=== PATIENT | female | born 1985 | race Caucasian/White ===

== ENCOUNTER 2017-01-25 05:26 | Inpatient (IN) | payer BC ==
[2017-01-25] MEDS ORDERED: Sodium Chloride 0.9% 10 ML Syringe FLUSH PRN (05:30)
[2017-01-25] MEDS ORDERED: ceFAZolin 2 GM in Premix Bag 1 BAG IV ONE (06:00)
[2017-01-25] MEDS ORDERED: Citric Acid/Sodium Citrate Solution 30 ML Cup PO ONE (06:00)
[2017-01-25] MEDS ORDERED: Metoclopramide 10 MG/2 ML SDV IVPUSH ONE (06:00)
[2017-01-25] MEDS: Lactated Ringers 1,000 ML IV SCH ×2 (06:13→06:45)
[2017-01-25] MEDS ORDERED: ePHEDrine 50 MG/ML SDV ONE (06:53)
[2017-01-25] MEDS ORDERED: Lactated Ringers 2,000 ML ONE ×2 (06:53→08:38)
[2017-01-25] MEDS ORDERED: Ondansetron 4 MG/2 ML SDV ONE (06:53)
[2017-01-25] MEDS ORDERED: Oxytocin 10 Units/1 ML SDV ONE (06:53)
[2017-01-25] MEDS ORDERED: Phenylephrine 1% 10 MG/ML SDV ONE (06:53)
[2017-01-25] MEDS ORDERED: Ketorolac 30 MG/ML SDV ONE (06:54)
[2017-01-25] MEDS ORDERED: Morphine PF 10 MG/10 ML SDV ONE (06:54)
[2017-01-25] MEDS ORDERED: ceFAZolin 1 GM Vial ONE (06:54)
[2017-01-25] MEDS ORDERED: Bupivacaine 0.5% 30 ML SDV ONE (07:06)
--- NOTE | 2017-01-25 07:22 | PCM.PREANE ---
Preanesthetic Assessment - Anesthesia/Transfusion/Family Hx Anesthesia History: Prior Anesthesia Reaction Type of Anesthesia Reaction: Excessive Nausea/Vomiting (After general anesthetics) Family History of Anesthesia Reaction: No Transfusion History: No Prior Transfusion(s) Intubation History: Unknown - Review of Systems General: No Symptoms Pulmonary: No Symptoms Cardiovascular: Palpitations (Tachycardia with . Holter monitor was normal. ), Other Gastrointestinal: Other (Heart burn at night) Neurological: No Symptoms Other: Reports: None - Physical Assessment NPO Status Date: 01/24/17 NPO Status Time: 00:00 O2 Sat by Pulse Oximetry: 100 Respiratory Rate: 16 Vital Signs: Last Vital Signs Temp 36.7 C 01/25/17 05:30 Pulse 116 H 01/25/17 05:30 Resp 16 01/25/17 05:30 BP 106/69 01/25/17 05:30 Pulse Ox 100 01/25/17 05:30 Height: 1.65 m Weight: 95.799 kg ASA Class: 2 Mental Status: Alert & Oriented x3 Dentition: Reports: Normal Dentition Thyro-Mental Finger Breadths: 3 Mouth Opening Finger Breadths: 3 ROM/Head Extension: Full Lungs: Clear to Auscultation, Normal Respiratory Effort Cardiovascular: Regular Rate, Regular Rhythm - Lab Values: Laboratory Last Values WBC 6.85 K/mm3 (3.98-10.04) 01/24/17 08:45 RBC 4.24 M/mm3 (3.98-5.22) 01/24/17 08:45 Hgb 11.2 gm/L (11.2-15.7) 01/24/17 08:45 Hct 35.0 % (34.1-44.9) 01/24/17 08:45 MCV 82.5 fl (79.4-94.8) 01/24/17 08:45 MCH 26.4 pg (25.6-32.2) 01/24/17 08:45 MCHC 32.0 g/dl (32.2-35.5) L 01/24/17 08:45 RDW Std Deviation 43.2 fL (36.4-46.3) 01/24/17 08:45 Plt Count 176 K/mm3 (182-369) L 01/24/17 08:45 MPV 11.3 fl (9.4-12.3) 01/24/17 08:45 Neut % (Auto) 69.8 % (34.0-71.1) 01/24/17 08:45 Lymph % (Auto) 21.5 % (19.3-51.7) 01/24/17 08:45 [place] % (Auto) 6.4 % (4.7-12.5) 01/24/17 08:45 Eos % (Auto) 1.6 (0.7-5.8) 01/24/17 08:45 Baso % (Auto) 0.3 % (0.1-1.2) 01/24/17 08:45 Neut # (Auto) 4.78 K/mm3 (1.56-6.13) 01/24/17 08:45 Lymph # (Auto) 1.47 K/mm3 (1.18-3.74) 01/24/17 08:45 [place] # (Auto) 0.44 K/mm3 (0.24-0.36) H 01/24/17 08:45 Eos # (Auto) 0.11 K/mm3 (0.04-0.36) 01/24/17 08:45 Baso # (Auto) 0.02 K/mm3 (0.01-0.08) 01/24/17 08:45 Blood Type A POSITIVE 01/24/17 08:45 Gel Antibody Screen Negative 01/24/17 08:45 - Allergies Allergies/Adverse Reactions: Allergies Allergy/AdvReac Type Severity Reaction Status Date / Time No Known Allergies Allergy Verified 04/16/16 09:33 - Anesthesia Plan Pre-Op Medication Ordered: Antacids - Acknowledgements Anesthesia Type Planned: Spinal Pt an Appropriate Candidate for the Planned Anesthesia: Yes Alternatives and Risks of Anesthesia Discussed w Pt/Guardian: Yes Pt/Guardian Understands and Agrees with Anesthesia Plan: Yes PreAnesthesia Questionnaire Respiratory History: Reports: Asthma Genitourinary History: Reports: Renal Calculus 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 OB/BYN History: hx of gestational diabetes Musculoskeletal History: Reports: Osteoarthritis, Other (See Below) Endocrine/Metabolic History: Reports: Other (See Below) Other Endocrine/Metabolic History: gestational DM with previous - Infectious Disease History Infectious Disease History: Reports: Chicken Pox - Past Surgical History GI Surgical History: Reports: Cholecystectomy Female Surgical History: Reports: Section, Other (See Below) Other Female Surgeries/Procedures: times 3 Musculoskeletal Surgical History: Reports: Arthroscopic Procedure, Other (See Below) Other Musculoskeletal Surgeries/Procedures:: right knee surgery 2011, 2016. left knee surgery 2013 - SUBSTANCE USE Smoking Status *Q: Never Smoker Second Hand Smoke Exposure: No Days Per Week of Alcohol Use: 0 Recreational Drug Use History: No - HOME MEDS Home Medications: Home Meds Orphenadrine [Norflex] 1 tab PO Q12H PRN #10 tab.er 04/16/16 [Rx] - CURRENT (IN HOUSE) MEDS Current Meds: Current Medications Lactated Ringer's (Ringers, Lactated) 1,000 mls @ 125 mls/hr IV ASDIRECTED GEMMA Last Admin: 01/25/17 06:45 Dose: 125 mls/hr Oxytocin/Lactated Ringer's (Pitocin In Lr 10 Units/1,000 Ml) 10 unit in 1,000 mls @ 100 mls/hr IV ASDIRECTED GEMMA PRN Reason: Protocol Sodium Chloride (Saline Flush) 10 ml FLUSH ASDIRECTED PRN PRN Reason: Keep Vein Open Discontinued Medications Cefazolin Sodium (Ancef) Confirm Administered Dose 2 gm .ROUTE .STK-MED ONE Stop: 01/25/17 06:55 Citric Acid/Sodium Citrate (Bicitra Solution) 30 ml PO ONETIME ONE Stop: 01/25/17 06:01 Last Admin: 01/25/17 06:53 Dose: 30 ml Ephedrine Sulfate (Ephedrine Sulfate) Confirm Administered Dose 50 mg .ROUTE .STK-MED ONE Stop: 01/25/17 06:54 Cefazolin Sodium/Dextrose 2 gm (/ Premix) 50 mls @ 100 mls/hr IV ONETIME ONE Stop: 01/25/17 06:29 Lactated Ringer's (Ringers, Lactated) Confirm Administered Dose 2,000 mls @ as directed .ROUTE .STK-MED ONE Stop: 01/25/17 06:54 Ketorolac Tromethamine (Toradol) Confirm Administered Dose 30 mg .ROUTE .STK- MED ONE Stop: 01/25/17 06:55 Metoclopramide HCl (Reglan) 10 mg IVPUSH ONETIME ONE Stop: 01/25/17 06:01 Last Admin: 01/25/17 06:53 Dose: 10 mg Morphine Sulfate (Duramorph Pf) Confirm Administered Dose 10 mg .ROUTE .STK-MED ONE Stop: 01/25/17 06:55 Ondansetron HCl (Zofran) Confirm Administered Dose 4 mg .ROUTE .STK-MED ONE Stop: 01/25/17 06:54 Oxytocin (Pitocin) Confirm Administered Dose 10 unit .ROUTE .STK-MED ONE Stop: 01/25/17 06:54 Phenylephrine HCl (Shivam-Synephrine) Confirm Administered Dose 10 mg .ROUTE .STK- MED ONE Stop: 01/25/17 06:54
[2017-01-25] MEDS ORDERED: Oxytocin/Lactated Ringers 10 UNIT/1,000 ML BAG IV SCH (08:00)
--- NOTE | 2017-01-25 08:56 | PCM.POSTAN ---
POST ANESTHESIA ASSESSMENT - MENTAL STATUS Mental Status: Alert, Oriented - VITAL SIGNS Pulse Rate: 90 SaO2: 99 Resp Rate: 19 Blood Pressure: 93/50 Temperature: 98.2 C - RESPIRATORY Respiratory Status: Respiratory Rate WNL, Airway Patent, O2 Saturation Stable - CARDIOVASCULAR CV Status: Pulse Rate WNL, Blood Pressure Stable - GASTROINTESTINAL GI Status: No Symptoms - PAIN Pain Score: 0 - POST OP HYDRATION Hydration Status: Adequate & Stable
[2017-01-25] MEDS ORDERED: diphenhydrAMINE 50 MG/ML SDV IVPUSH PRN ×2 (09:00→09:57)
--- NOTE | 2017-01-25 09:02 | PCM.OPNOTE ---
- General Post-Op/Procedure Note Date of Surgery/Procedure: 01/25/17 Operative Procedure(s): repeat section Findings: very thin lower uterine segment, viable female, 8#11oz, vertex, 9/9 APGARS Pre Op Diagnosis: Prior desires repeat Post-Op Diagnosis: Same Anesthesia Technique: Spinal Primary Surgeon: Sonia Ly Anesthesia Provider: taty Facilities Officer: Fabiola Nuñez Reason Facilities Officer Was Necessary: standard of care, patient safety, positioning and retraction Fluid Replacement, Intraop: 3,800 Output, Urine Amount: 100 EBL in mLs: 800 Complications: None Condition: Good Free Text/Narrative:: Intake & Output 01/24/17 01/25/17 01/25/17 22:59 06:59 14:59 Intake Total 1000 Balance 1000 The patient was taken to the operating room where epidural anesthesia was dosed to surgical levels without difficulty. The patient was prepped and draped in the usual sterile fashion in the dorsal supine position with a leftward tilt. A Pfannenstiel skin incision was made with the scalpel and carried through to the underlying layer of fascia. The fascia was incised in the midline and extended laterally using Georges scissors. Pina clamps were used to elevate the superior aspect of the fascial incision, which was elevated, and the underlying rectus muscles were dissected off bluntly and using Georges scissors. Attention was then turned to the inferior aspect of the fascial incision, which in similar fashion was grasped with Pina clamps, elevated, and the underlying rectus muscles were dissected off bluntly and using the georges. The rectus muscles were dissected in the midline. The peritoneum was entered bluntly; this incision was extended superiorly and inferiorly with good visualization of the bladder. The bladder blade was inserted. The vesicouterine peritoneum was identified and entered sharply using Metzenbaum scissors. This incision was extended laterally and the bladder flap was created digitally. The bladder blade was reinserted. The very thin lower uterine segment was incised in a transverse fashion using the scalpel and with digital traction. Clear fluid was noted. The infant was subsequently delivered by flexing the head to the incision. Body and shoulders followed without difficulty. The cord was clamped and cut. The was subsequently handed to the awaiting account management specialist whose presence had been requested.. The placenta was delivered spontaneously intact with a three-vessel cord noted. The uterus was exteriorized and cleared of all clots and debris. The uterine incision was repaired in 2 layers using 0 monocryl. Hemostasis was visualized. Hemostasis was visualized bilaterally. The uterus was returned to the abdomen. The uterine incision was reexamined and it was noted to be hemostatic. The pelvis was copiously irrigated. The fascia was closed with 1 PDS suture, and the skin was closed with 3-0 monocryl. Sponge, lap, and instrument counts were correct x2. The patient was stable at the completion of the procedure and was subsequently transferred to the recovery room in stable condition.
[2017-01-25] MEDS ORDERED: Naloxone 0.4 MG/ML SDV IVPUSH PRN (09:57)
[2017-01-25] MEDS ORDERED: Dextrose 5%-Lactated Ringers 1,000 ML IV SCH (09:57)
[2017-01-25] MEDS ORDERED: Lanolin 100% Cream 7 GM Tube TOP PRN (09:57)
[2017-01-25] MEDS ORDERED: ePHEDrine 50 MG/ML SDV IVPUSH PRN (09:57)
[2017-01-25] MEDS ORDERED: Docusate Sodium 100 MG Cap PO PRN (09:57)
[2017-01-25] MEDS ORDERED: Witch Hazel Medicated Pads 100/Jar TOP PRN (09:57)
[2017-01-25] MEDS: Ondansetron 4 MG/2 ML SDV IVPUSH PRN ×2 (10:30→12:10)
[2017-01-25] MEDS ORDERED: Promethazine 6.25 MG in Sodium Chloride 0.9% 50 ML IV PRN (11:27)
[2017-01-26] MEDS: Acetaminophen/oxyCODONE 325-5 MG Tab PO PRN ×5 (04:01→22:08)
--- NOTE | 2017-01-26 08:32 | PCM48HPAN ---
Post Anesthesia Note - EVALUATION WITHIN 48HRS OF ANESTHETIC Vital Signs in Normal Range: Yes Patient Participated in Evaluation: Yes Respiratory Function Stable: Yes Airway Patent: Yes Cardiovascular Function Stable: Yes Hydration Status Stable: Yes Pain Control Satisfactory: Yes Nausea and Vomiting Control Satisfactory: Yes Mental Status Recovered: Yes - COMMENTS/OBSERVATIONS Free Text/Narrative:: Esha is up ambulating. She denies any back pain, headache, or numbness and tingling in her lower extremities. She did have some nausea yesterday and feels much better today. She has some mild itching today that is subsiding. No further questions at this time.
--- NOTE | 2017-01-26 10:31 | PCM.PNPP ---
- General Info Date of Service: 01/26/17 Functional Status: Reports: Pain Controlled - Review of Systems General: Reports: No Symptoms HEENT: Reports: No Symptoms Pulmonary: Reports: No Symptoms Cardiovascular: Reports: No Symptoms Gastrointestinal: Reports: No Symptoms Genitourinary: Reports: No Symptoms Musculoskeletal: Reports: No Symptoms Skin: Reports: No Symptoms Neurological: Reports: No Symptoms Psychiatric: Reports: No Symptoms - General Info Date of Service: 01/26/17 - Patient Data Vital Signs - Most Recent: Last Vital Signs Temp 36.6 C 01/26/17 08:25 Pulse 97 01/26/17 08:25 Resp 14 01/26/17 08:25 BP 92/50 L 01/26/17 08:25 Pulse Ox 96 01/26/17 08:25 Weight - Most Recent: 95.799 kg I&O - Last 24 Hours: Intake & Output 01/25/17 01/26/17 01/26/17 22:59 06:59 14:59 Intake Total 620 Output Total 2300 750 Balance -1680 -750 Lab Results - Last 24 Hours: Laboratory Results - last 24 hr 01/26/17 Range/Units 05:55 WBC 7.68 (3.98-10.04) K/mm3 RBC 3.72 L (3.98-5.22) M/mm3 Hgb 9.9 L (11.2-15.7) gm/L Hct 31.3 L (34.1-44.9) % MCV 84.1 (79.4-94.8) fl MCH 26.6 (25.6-32.2) pg MCHC 31.6 L (32.2-35.5) g/dl RDW Std Deviation 44.4 (36.4-46.3) fL Plt Count 169 L (182-369) K/mm3 MPV 11.4 (9.4-12.3) fl Neut % (Auto) 68.8 (34.0-71.1) % Lymph % (Auto) 21.5 (19.3-51.7) % [place] % (Auto) 7.8 (4.7-12.5) % Eos % (Auto) 1.2 (0.7-5.8) Baso % (Auto) 0.3 (0.1-1.2) % Neut # (Auto) 5.29 (1.56-6.13) K/mm3 Lymph # (Auto) 1.65 (1.18-3.74) K/mm3 [place] # (Auto) 0.60 H (0.24-0.36) K/mm3 Eos # (Auto) 0.09 (0.04-0.36) K/mm3 Baso # (Auto) 0.02 (0.01-0.08) K/mm3 Med Orders - Current: Current Medications Diphenhydramine HCl (Benadryl) 25 mg IVPUSH Q6H PRN PRN Reason: Pruritis Diphenhydramine HCl (Benadryl) 25 mg IVPUSH Q6H PRN PRN Reason: Itching or Nausea Docusate Sodium (Colace) 100 mg PO Q12H PRN PRN Reason: Constipation Emollient Ointment (Lansinoh Hpa) 0 gm TOP ASDIRECTED PRN PRN Reason: Sore Nipples Ephedrine Sulfate (Ephedrine Sulfate) 5 mg IVPUSH SEECOMMENT PRN PRN Reason: Other Promethazine HCl 6.25 mg/ (Sodium Chloride) 50.25 mls @ 100 mls/hr IV ONETIME PRN PRN Reason: Nausea/Vomiting Last Admin: 01/25/17 12:06 Dose: 100 mls/hr Naloxone HCl (Narcan) 0.1 mg IVPUSH SEECOMMENT PRN PRN Reason: Respiratory Depression Ondansetron HCl (Zofran) 4 mg IVPUSH ONETIME PRN PRN Reason: Nausea/Vomiting Last Admin: 01/25/17 12:10 Dose: 4 mg Oxycodone/Acetaminophen (Percocet 325-5 Mg) 2 tab PO Q6H PRN PRN Reason: Pain (moderate 4-6) Last Admin: 01/26/17 08:35 Dose: 1 tab Witch Mary Lou (Tucks) 1 pad TOP ASDIRECTED PRN PRN Reason: Perineal Comfort Measure Discontinued Medications Bupivacaine HCl (Marcaine 0.5%) Confirm Administered Dose 30 ml .ROUTE .STK-MED ONE Stop: 01/25/17 07:07 Last Admin: 01/25/17 08:10 Dose: 20 ml Cefazolin Sodium (Ancef) Confirm Administered Dose 2 gm .ROUTE .STK-MED ONE Stop: 01/25/17 06:55 Citric Acid/Sodium Citrate (Bicitra Solution) 30 ml PO ONETIME ONE Stop: 01/25/17 06:01 Last Admin: 01/25/17 06:53 Dose: 30 ml Ephedrine Sulfate (Ephedrine Sulfate) Confirm Administered Dose 50 mg .ROUTE .STK-MED ONE Stop: 01/25/17 06:54 Cefazolin Sodium/Dextrose 2 gm (/ Premix) 50 mls @ 100 mls/hr IV ONETIME ONE Stop: 01/25/17 06:29 Last Admin: 01/26/17 10:24 Dose: Not Given Lactated Ringer's (Ringers, Lactated) 1,000 mls @ 125 mls/hr IV ASDIRECTED [facility] Last Admin: 01/25/17 06:45 Dose: 125 mls/hr Oxytocin/Lactated Ringer's (Pitocin In Lr 10 Units/1,000 Ml) 10 unit in 1,000 mls @ 100 mls/hr IV ASDIRECTED [facility] PRN Reason: Protocol Lactated Ringer's (Ringers, Lactated) Confirm Administered Dose 2,000 mls @ as directed .ROUTE .STK-MED ONE Stop: 01/25/17 06:54 Lactated Ringer's (Ringers, Lactated) Confirm Administered Dose 2,000 mls @ as directed .ROUTE .STK-MED ONE Stop: 01/25/17 08:39 Dextrose/Lactated Ringer's (Dextrose 5%-Lactated Ringers) 1,000 mls @ 125 mls/ hr IV ASDIRECTED [facility] Stop: 01/25/17 17:56 Last Admin: 01/25/17 10:29 Dose: 125 mls/hr Ketorolac Tromethamine (Toradol) Confirm Administered Dose 30 mg .ROUTE .STK- MED ONE Stop: 01/25/17 06:55 Metoclopramide HCl (Reglan) 10 mg IVPUSH ONETIME ONE Stop: 01/25/17 06:01 Last Admin: 01/25/17 06:53 Dose: 10 mg Morphine Sulfate (Duramorph Pf) Confirm Administered Dose 10 mg .ROUTE .STK-MED ONE Stop: 01/25/17 06:55 Ondansetron HCl (Zofran) Confirm Administered Dose 4 mg .ROUTE .STK-MED ONE Stop: 01/25/17 06:54 Oxytocin (Pitocin) Confirm Administered Dose 10 unit .ROUTE .STK-MED ONE Stop: 01/25/17 06:54 Phenylephrine HCl (Shivam-Synephrine) Confirm Administered Dose 10 mg .ROUTE .STK- MED ONE Stop: 01/25/17 06:54 Sodium Chloride (Saline Flush) 10 ml FLUSH ASDIRECTED PRN PRN Reason: Keep Vein Open - Interaction Infant Disposition, : [place] in Room with Family Support Person: - Recovery Exam Fundal Tone: Firm Fundal Level: 1 Fingerbreadths Above Umbilicus Fundal Placement: Midline Lochia Amount: Small Lochia Color: Rubra/Red Perineum Description: Intact, Minimal Bruising/Swelling Episiotomy/Laceration: None Bladder Status: Voiding Urinary Elimination: Indwelling Catheter - Exam General: Alert, Oriented HEENT: Pupils Equal Neck: Supple Lungs: Clear to Auscultation, Normal Respiratory Effort Cardiovascular: Regular Rate, Regular Rhythm GI/Abdominal Exam: Normal Bowel Sounds, Soft, Non-Tender, No Organomegaly, No Distention, No Abnormal Bruit, No Mass Extremities: Normal Inspection, Normal Range of Motion, Non-Tender, No Pedal Edema, Normal Capillary Refill Skin: Warm, Dry, Intact Wound/Incisions: Healing Well Neurological: No New Focal Deficit Psy/Mental Status: Alert, Normal Affect, Normal Mood - Problem List Review Problem List Initiated/Reviewed/Updated: Yes - My Orders Last 24 Hours: My Active Orders 01/25/17 09:57 Notify Provider Intake and Out [RC] ASDIRECTED Acetaminophen/oxyCODONE [Percocet 325-5 MG] 2 tab PO Q6H PRN Docusate Sodium [Colace] 100 mg PO Q12H PRN Lanolin [Lansinoh HPA] See Dose Instructions TOP ASDIRECTED PRN Naloxone [Narcan] 0.1 mg IVPUSH SEECOMMENT PRN Witch Mary [place] [Tucks] 1 pad TOP ASDIRECTED PRN diphenhydrAMINE [Benadryl] 25 mg IVPUSH Q6H PRN ePHEDrine [ePHEDrine Sulfate] 5 mg IVPUSH SEECOMMENT PRN Assess Lochia [WOMSER] Per Unit Routine Assess Uterine Involution [WOMSER] Per Unit Routine Medication Administration Instruction [OM.PC] Routine 01/25/17 Lunch Regular Diet [DIET] - Assessment Assessment:: POD 1 doing great. No issues. Likely discharge tomorrow.
[2017-01-26] MEDS: Ibuprofen 600 MG Tab PO PRN ×2 (11:05→20:42)
[2017-01-27] MEDS: Acetaminophen/oxyCODONE 325-5 MG Tab PO PRN (04:50)
[2017-01-27] MEDS ORDERED: Simethicone 80 MG Tab.Chew PO PRN (08:02)
[2017-01-27] MEDS: Ibuprofen 600 MG Tab PO PRN (08:22)
[2017-01-27 09:25] VITALS: BP 112/59
[2017-01-27] MEDS ORDERED: Measles, Mumps & Rubella Vaccine 0.5 ML SDV SUBCUT ONE (11:00)
--- NOTE | 2017-03-04 08:40 | DISCH ---
ADMISSION DATE: 01/25/2017 DISCHARGE DATE: 01/27/2017 ADMISSION DIAGNOSIS: Prior , desires repeat intrauterine 39 plus weeks. FINAL DIAGNOSIS: Prior , desires repeat intrauterine 39 plus weeks. PROCEDURES: 1. Spinal anesthesia. 2. Repeat . BRIEF HISTORY AND HOSPITAL COURSE: Esha was admitted and underwent repeat without difficulties, was ambulating, voiding and tolerating diet by postoperative day #1. On postoperative day #2, expressed desire for discharge and will be discharged to home in good condition. DIETARY INSTRUCTIONS: Usual diet as tolerated. ACTIVITY: Pelvic rest. No strenuous activities. No driving and followup with myself in 4 weeks. MEDICATIONS: Routine medications and Percocet which has been sent to her pharmacy. REVIEW OF SYSTEMS: Negative template. PHYSICAL EXAMINATION: VITAL SIGNS: Vitals available in chart. HEENT: Normocephalic, atraumatic. CARDIOVASCULAR: Regular rate and rhythm. RESPIRATIONS: Unlabored. ABDOMEN: Soft, nontender. Incision excellent. EXTREMITIES: Without significant edema. ASSESSMENT AND PLAN: Postoperative day #2 desires discharge to home after section, doing well. Discharged home in good condition. DISCHARGE MEDICATIONS: DIET: Usual diet as tolerated. FOLLOW-UP: Follow-up with me in 4 weeks. CONDITION ON DISCHARGE: Good. MMODAL /[id number]
== END 2017-01-27 11:02 | disposition home or self-care (01) | DRG 540 ==
LOC: JD.OB 05:26
PROVIDERS: ADMIT Obstetrics & Gynecology; ATTEND Obstetrics & Gynecology
PROC: 10D00Z1 Extraction of Products of Conception, Low, Open Approach (ICD-10-PCS; principal; 2017-01-25)
DX: O34.211 Maternal care for low transverse scar from previous cesarean delivery (principal); N85.8 Other specified noninflammatory disorders of uterus; Z3A.38 38 weeks gestation of pregnancy; Z37.0 Single live birth; O99.824 Streptococcus B carrier state complicating childbirth
CPT/HCPCS: 01961; 36415; 85025; 86850; 86900; 86901; 90471; 90707; 94762; A9270-GY; J0690; J1885; J2270; J2370; J2405; J2550; J2590; J2765; J7042; J7050; J7120

== ENCOUNTER 2019-01-30 08:23 | Day surgery (SDC) | payer BC ==
[~2019-01-30 08:23] MED LIST: Lidocaine 1%/Sod Bicarbonate in NS 8.4% 1 ML Syringe IDERM PRN; Scopolamine 1.5 MG Transdermal Patch TOP SCH; Sodium Chloride 0.9% 10 ML Syringe FLUSH PRN
[2019-01-30] MEDS ORDERED: Lidocaine 1% with EPINEPHrine 1:100,000 20 ML MDV ONE (08:29)
[2019-01-30] MEDS ORDERED: Bupivacaine 0.5% 10 ML SDV ONE (08:29)
[2019-01-30] MEDS ORDERED: Sodium Chloride 0.9% 50 ML SDV ONE (08:30)
[2019-01-30] MEDS: Lactated Ringers 1,000 ML IV SCH ×2 (08:50→13:23)
[2019-01-30] MEDS ORDERED: Lidocaine 1% 6 ML ONE (09:19)
[2019-01-30] MEDS ORDERED: Ondansetron 4 MG/2 ML SDV ONE (09:19)
[2019-01-30] MEDS ORDERED: Lactated Ringers 1,000 ML ONE ×2 (09:19→12:04)
[2019-01-30] MEDS ORDERED: Dexamethasone 4 MG/ML 5 ML MDV ONE (09:19)
[2019-01-30] MEDS ORDERED: Rocuronium 50 MG/5 ML Vial ONE (09:19)
[2019-01-30] MEDS ORDERED: ceFAZolin 1 GM Vial ONE (09:19)
[2019-01-30] MEDS ORDERED: Ketorolac 30 MG/ML SDV ONE (09:19)
[2019-01-30] MEDS ORDERED: HYDROmorphone 0.5 MG/0.5 ML Syringe ONE ×2 (09:20→11:19)
[2019-01-30] MEDS ORDERED: Midazolam 1 MG/ML 2 ML SDV ONE (09:20)
[2019-01-30] MEDS ORDERED: fentaNYL 250 MCG/5 ML SDV ONE (09:20)
[2019-01-30] MEDS ORDERED: Propofol 200 MG/20 ML SDV ONE (09:20)
--- NOTE | 2019-01-30 09:49 | PCM.PREANE ---
Preanesthetic Assessment - Anesthesia/Transfusion/Family Hx Anesthesia History: Prior Anesthesia Reaction Type of Anesthesia Reaction: Excessive Nausea/Vomiting Family History of Anesthesia Reaction: No Transfusion History: No Prior Transfusion(s) Intubation History: Unknown - Review of Systems General: No Symptoms Pulmonary: No Symptoms (Exercise induced asthma(very stable) ETOH: rarely ) Cardiovascular: Palpitations (anxiety) Gastrointestinal: No Symptoms, Abdominal Pain (Crampin/10) Neurological: No Symptoms (History of motion sickness/) Other: Reports: Anxiety - Physical Assessment NPO Status Date: 01/29/19 NPO Status Time: 22:00 Vital Signs: Last Vital Signs Temp 36.6 C 01/30/19 08:30 Pulse 79 01/30/19 08:30 Resp 16 01/30/19 08:30 BP 107/82 01/30/19 08:30 Pulse Ox 100 01/30/19 08:30 Height: 1.65 m Weight: 80.286 kg ASA Class: 2 Mental Status: Alert & Oriented x3 Airway Class: Mallampati = 2 Dentition: Reports: Normal Dentition (permanent bottom retainer), Caries Thyro-Mental Finger Breadths: 3 Mouth Opening Finger Breadths: 3 ROM/Head Extension: Full Lungs: Clear to Auscultation, Normal Respiratory Effort Cardiovascular: Regular Rate, Regular Rhythm, No Murmurs - Lab Values: Laboratory Last Values WBC 4.84 K/mm3 (3.98-10.04) 01/30/19 08:50 RBC 4.71 M/mm3 (3.98-5.22) 01/30/19 08:50 Hgb 13.7 gm/dl (11.2-15.7) 01/30/19 08:50 Hct 41.5 % (34.1-44.9) 01/30/19 08:50 MCV 88.1 fl (79.4-94.8) 01/30/19 08:50 MCH 29.1 pg (25.6-32.2) 01/30/19 08:50 MCHC 33.0 g/dl (32.2-35.5) 01/30/19 08:50 RDW Std Deviation 40.7 fL (36.4-46.3) 01/30/19 08:50 Plt Count 232 K/mm3 (182-369) 01/30/19 08:50 MPV 11.2 fl (9.4-12.3) 01/30/19 08:50 Neut % (Auto) 52.5 % (34.0-71.1) 01/30/19 08:50 Lymph % (Auto) 34.9 % (19.3-51.7) 01/30/19 08:50 [place] % (Auto) 8.3 % (4.7-12.5) 01/30/19 08:50 Eos % (Auto) 3.3 (0.7-5.8) 01/30/19 08:50 Baso % (Auto) 0.8 % (0.1-1.2) 01/30/19 08:50 Neut # (Auto) 2.54 K/mm3 (1.56-6.13) 01/30/19 08:50 Lymph # (Auto) 1.69 K/mm3 (1.18-3.74) 01/30/19 08:50 [place] # (Auto) 0.40 K/mm3 (0.24-0.36) H 01/30/19 08:50 Eos # (Auto) 0.16 K/mm3 (0.04-0.36) 01/30/19 08:50 Baso # (Auto) 0.04 K/mm3 (0.01-0.08) 01/30/19 08:50 Sodium 141 mEq/L (136-145) 01/30/19 08:50 Potassium 3.6 mEq/L (3.5-5.1) 01/30/19 08:50 Chloride 106 mEq/L (98-107) 01/30/19 08:50 Carbon Dioxide 26 mEq/L (21-32) 01/30/19 08:50 Anion Gap 12.6 (5-15) 01/30/19 08:50 BUN 8 mg/dL (7-18) 01/30/19 08:50 Creatinine 0.7 mg/dL (0.55-1.02) 01/30/19 08:50 Est Cr Clr Drug Dosing TNP 01/30/19 08:50 Estimated GFR (MDRD) > 60 mL/min (>60) 01/30/19 08:50 BUN/Creatinine Ratio 11.4 (14-18) L 01/30/19 08:50 Glucose 91 mg/dL (74-106) 01/30/19 08:50 Calcium 8.7 mg/dL (8.5-10.1) 01/30/19 08:50 Total Bilirubin 1.2 mg/dL (0.2-1.0) H 01/30/19 08:50 AST 6 U/L (15-37) L 01/30/19 08:50 ALT 18 U/L (14-59) 01/30/19 08:50 Alkaline Phosphatase 52 U/L (46-116) 01/30/19 08:50 Total Protein 7.3 g/dl (6.4-8.2) 01/30/19 08:50 Albumin 3.8 g/dl (3.4-5.0) 01/30/19 08:50 Globulin 3.5 gm/dL 01/30/19 08:50 Albumin/Globulin Ratio 1.1 (1-2) 01/30/19 08:50 Urine Color Yellow (Yellow) 01/30/19 08:28 Urine Appearance Clear (Clear) 01/30/19 08:28 Urine pH 7.5 (5.0-8.0) 01/30/19 08:28 Ur Specific [place] 1.025 (1.005-1.030) 01/30/19 08:28 Urine Protein Negative (Negative) 01/30/19 08:28 Urine Glucose (UA) Negative (Negative) 01/30/19 08:28 Urine Ketones Negative (Negative) 01/30/19 08:28 Urine Occult Blood Negative (Negative) 01/30/19 08:28 Urine Nitrite Negative (Negative) 01/30/19 08:28 Urine Bilirubin Negative (Negative) 01/30/19 08:28 Urine Urobilinogen 0.2 (0.2-1.0) 01/30/19 08:28 Ur Leukocyte Esterase Negative (Negative) 01/30/19 08:28 Urine RBC 0-5 /hpf (0-5) 01/30/19 08:28 Urine WBC 0-5 /hpf (0-5) 01/30/19 08:28 Ur Squamous Epith Cells 0-5 /hpf (0-5) 01/30/19 08:28 Urine Bacteria Few /hpf (FEW) 01/30/19 08:28 Urine Mucus Moderate /hpf (FEW) H 01/30/19 08:28 Urine HCG, Qual Negative (NEGATIVE) 01/30/19 08:28 Above labs reviewed and noted and within acceptable ranges to proceed with scheduled procedure. - Allergies Allergies/Adverse Reactions: Allergies Allergy/AdvReac Type Severity Reaction Status Date / Time hydrocodone Allergy Nausea and Verified 01/29/19 11:08 Vomiting - Anesthesia Plan Pre-Op Medication Ordered: None - Acknowledgements Anesthesia Type Planned: General Anesthesia Pt an Appropriate Candidate for the Planned Anesthesia: Yes Alternatives and Risks of Anesthesia Discussed w Pt/Guardian: Yes Pt/Guardian Understands and Agrees with Anesthesia Plan: Yes PreAnesthesia Questionnaire HEENT History: Reports: Impaired Vision Cardiovascular History: Reports: None Respiratory History: Reports: Asthma Other Respiratory History: asthma diagsnosed as teenager, activty induced- does not use/have inhaler Genitourinary History: Reports: Renal Calculus [employer] History: Reports: Other OB/BYN History: hx of gestational diabetes Musculoskeletal History: Reports: Osteoarthritis, Other (See Below) Neurological History: Reports: None Psychiatric History: Reports: None Endocrine/Metabolic History: Reports: Diabetes, Gestational, Other (See Below) Other Endocrine/Metabolic History: gestational DM with previous Hematologic History: Reports: None Immunologic History: Reports: None Oncologic (Cancer) History: Reports: None Dermatologic History: Reports: None - Infectious Disease History Infectious Disease History: Reports: Chicken Pox - Past Surgical History Head Surgeries/Procedures: Reports: None Cardiovascular Surgical History: Reports: None Respiratory Surgical History: Reports: None GI Surgical History: Reports: Cholecystectomy Female Surgical History: Reports: Section, D&C, Other (See Below) Other Female Surgeries/Procedures: x 4, retained palacenta Neurological Surgical History: Reports: None Musculoskeletal Surgical History: Reports: Arthroscopic Knee, Other (See Below) Other Musculoskeletal Surgeries/Procedures:: right knee surgery x2 (arthroscopy ) & left knee surgery x2 (arthroscopy) Oncologic Surgical History: Reports: None Dermatological Surgical History: Reports: None - SUBSTANCE USE Smoking Status *Q: Never Smoker Recreational Drug Use History: No - HOME MEDS Home Medications: Home Meds Acetaminophen [Tylenol] 650 mg PO Q4H PRN 01/29/19 [History] Ibuprofen 200 - 600 mg PO Q6H PRN 01/29/19 [History] oxyCODONE HCl/Acetaminophen [Oxycodone-Acetaminophen 5-325] 1 - 2 tab PO Q4H PRN 01/29/19 [History] - CURRENT (IN HOUSE) MEDS Current Meds: Current Medications Lactated Ringer's (Ringers, Lactated) 1,000 mls @ 125 mls/hr IV ASDIRECTED GEMMA Last Admin: 01/30/19 08:50 Dose: 125 mls/hr Acetaminophen (Ofirmev) 100 mls @ 400 mls/hr IV NOW ONE Stop: 01/30/19 09:47 Last Admin: 01/30/19 09:38 Dose: 400 mls/hr Lidocaine/Sodium Bicarbonate (Buffered Lidocaine 1% In Ns 8.4%) 0.25 ml IDERM ONETIME PRN PRN Reason: Prior to IV Start Miscellaneous Information (Remove Patch) 1 ea TRDERM ONETIME GEMMA Scopolamine (Transderm-Scop) 1.5 mg TOP ONETIME GEMMA Last Admin: 01/30/19 08:35 Dose: 1.5 mg Sodium Chloride (Saline Flush) 10 ml FLUSH ASDIRECTED PRN PRN Reason: Keep Vein Open Discontinued Medications Bupivacaine HCl (Sensorcaine-Mpf 0.5%) Confirm Administered Dose 10 ml .ROUTE .STK-MED ONE Stop: 01/30/19 08:30 Cefazolin Sodium (Ancef) Confirm Administered Dose 2 gm .ROUTE .STK-MED ONE Stop: 01/30/19 09:20 Dexamethasone (Dexamethasone) Confirm Administered Dose 20 mg .ROUTE .STK-MED ONE Stop: 01/30/19 09:20 Fentanyl (Sublimaze) Confirm Administered Dose 250 mcg .ROUTE .STK-MED ONE Stop: 01/30/19 09:21 Hydromorphone HCl (Dilaudid) Confirm Administered Dose 0.5 mg .ROUTE .STK-MED ONE Stop: 01/30/19 09:21 Lidocaine HCl (Xylocaine-Mpf 1%) Confirm Administered Dose 6 mls @ as directed .ROUTE .STK-MED ONE Stop: 01/30/19 09:20 Lactated Ringer's (Ringers, Lactated) Confirm Administered Dose 1,000 mls @ as directed .ROUTE .STK-MED ONE Stop: 01/30/19 09:20 Ketorolac Tromethamine (Toradol) Confirm Administered Dose 30 mg .ROUTE .STK- MED ONE Stop: 01/30/19 09:20 Lidocaine/Epinephrine (Xylocaine 1% With Epinephrine 1:100,000) Confirm Administered Dose 20 ml .ROUTE .STK-MED ONE Stop: 01/30/19 08:30 Midazolam HCl (Versed 1 Mg/Ml) Confirm Administered Dose 2 mg .ROUTE .STK-MED ONE Stop: 01/30/19 09:21 Ondansetron HCl (Zofran) Confirm Administered Dose 4 mg .ROUTE .STK-MED ONE Stop: 01/30/19 09:20 Propofol (Diprivan 20 Ml) Confirm Administered Dose 200 mg .ROUTE .STK-MED ONE Stop: 01/30/19 09:21 Rocuronium [place] (Zemuron) Confirm Administered Dose 50 mg .ROUTE .STK-MED ONE Stop: 01/30/19 09:20 Sodium Chloride (Normal Saline) Confirm Administered Dose 50 ml .ROUTE .STK-MED ONE Stop: 01/30/19 08:31
[2019-01-30] MEDS ORDERED: ePHEDrine/Normal Saline 25 MG/5 ML Syringe ONE (10:38)
[2019-01-30] MEDS ORDERED: HYDROmorphone 0.5 MG/0.5 ML Syringe IVPUSH PRN (10:56)
[2019-01-30] MEDS ORDERED: Midazolam 1 MG/ML 2 ML SDV IVPUSH PRN (10:56)
[2019-01-30] MEDS ORDERED: Ondansetron 4 MG/2 ML SDV IVPUSH PRN ×2 (10:56→12:05)
[2019-01-30] MEDS ORDERED: Prochlorperazine 10 MG/2 ML SDV IVPUSH PRN (10:56)
[2019-01-30] MEDS ORDERED: fentaNYL 100 MCG/2 ML SDV IVPUSH PRN (10:56)
[2019-01-30] MEDS ORDERED: Acetaminophen/oxyCODONE 325-5 MG Tab PO PRN (12:05)
--- NOTE | 2019-01-30 12:12 | PCM.OPNOTE ---
- General Post-Op/Procedure Note Date of Surgery/Procedure: 01/30/19 Operative Procedure(s): Laparoscopic-assisted vaginal hysterectomy with bilateral salpingectomy Findings: Patient had significant varicosities in the bilateral broad ligament area. She had a bowel adhesion to the posterior aspect of the uterus gallbladder was surgically absent. Some scarring noted at the liver edge. Pelvis otherwise was unremarkable. No significant ovarian abnormalities noted therefore they were left in place per desire patient. Pre Op Diagnosis: 1. Dysmenorrhea. 2. Pelvic pain. 3. Menorrhagia. 4. Uterine fibroid Post-Op Diagnosis: Same Anesthesia Technique: General ET Tube Other Anesthesia Type: Marcaine 0.5%localapproximately 10 mL, lidocaine quarter percent with epi Primary Surgeon: Phoenix Gonzalez Secondary Surgeon: Diaz Leger Anesthesia Provider: Narciso Inman Account Information Clerk: Joann Cleary Reason Account Information Clerk Was Necessary: Retraction, assistance, patient's safety, quality of care. Pathology: Uterus, bilateral fallopian tubes in one specimen container. Output, Urine Amount: 400 EBL in mLs: 200 Drain/Tube Comments:: Indwelling bladder catheter during surgery only. It was removed at the end of the case. Complications: None Condition: Good Free Text/Narrative:: Surgery duration. 70 minutes. The patient was taken to the operating room placed in supine position on the operating table. She received 2 g of Ancef preoperatively for infection prophylaxis. She had signed consent previously. After adequate anesthesia patient was placed in a dorsal lithotomy position. It should be noted she had sequential compression stockings in place for DVT prophylaxis. A uterine manipulator was placed as was an latex free indwelling bladder catheter. This was done after adequate prepping and draping. The patient was placed in supine position and 3 laparoscopic port sites were developed. Infraumbilical, bilateral in location. Marcaine 0.5% approximately 3-5 mL was injected at each site. Verres needle was placed and pneumoperitoneum was achieved with 3 L of CO2. Infraumbilical and 2 lateral port sites were developed. Under laparoscopic guidance the upper portion of the hysterectomy was performed. Initially a bowel adhesion on the posterior aspect of the uterus was taken down. It is moderately adherent and therefore a wider excision of some uterine serosa and underlying tissue with the adhesion in an effort to avoid compromising the bowel. Stasis confirmed. The right infundibulopelvic ligament was elevated and crossclamped using the endoseal computerized cautery device. The round ligament was taken down to the broad ligament. At this time attention was turned to the left side and the left infundibulopelvic ligament and the triple ligament were then taken down in a similar fashion. Broad ligament was taken down to the area of the uterine vasculature. Uterine vasculature was developed in the usual fashion using the cautery system. Both uterine arteries were identified and developed. Vaginal approach was then undertaken. The patient was placed in the dorsal lithotomy position and a weighted speculum was placed in the vagina. The cervix was injected with lidocaine quarter percent with epinephrine 20 mL total. A full circumference incision was made through the epithelium around the cervix. Posterior cul-de-sac was entered without problems. The left uterosacral ligament and then the right uterosacral were taken down using the Enseal vessel closure system. The cardinal ligament and what remained of the uterine vascular vessels and cervical branches of the vessels were managed with the Enseal vessel closure system on each side. Anterior cul-de-sac was then entered and the remaining portion of broad ligament on the right side and a small portion of broad ligament remaining on the left side were then developed in the usual fashion. Uterus was then removed. At this point the uterus was completely removed and sent as specimen. The vaginal cuff was then run with a locked running suture of 0 Monocryl from the 2 o'clock position to the 10 o'clock position. The vagina was closed with a running locked suture of 0 Monocryl. Hemostasis was confirmed this time and no bleeding was noted. Laparoscopy was then performed to ensure hemostasis. Pneumoperitoneum was reestablished and the laparoscope was placed. The pelvis was found to be hemostatically intact. There was no evidence of any bowel adhesion to the vaginal cuff area noted. Small amount of blood was removed from the cul-de-sac area with suction. The sleeves were removed under direct visualization and the upper sleeve was removed after reversal of the pneumoperitoneum. Each of these sites were closed with a single interrupted suture of 3-0 Monocryl. They were further approximated with Dermabond skin glue. At this point the patient was awakened from general endotracheal anesthesia. The [place] catheter had been removed by this time. She is discharged from the operating room in good condition.
--- NOTE | 2019-01-30 12:25 | PCM.POSTAN ---
POST ANESTHESIA ASSESSMENT - MENTAL STATUS Mental Status: Somnolent - VITAL SIGNS Vital Signs: Last Vital Signs Temp 97.3 F 01/30/19 12:15 Pulse 70 01/30/19 12:15 Resp 17 01/30/19 12:15 BP 101/51 L 01/30/19 12:15 Pulse Ox 100 01/30/19 12:15 - RESPIRATORY Respiratory Status: Respiratory Rate WNL, Airway Patent, O2 Saturation Stable, Supplemental Oxygen - CARDIOVASCULAR CV Status: Pulse Rate WNL, Blood Pressure Stable - GASTROINTESTINAL GI Status: No Symptoms - PAIN Pain Score: 0 - POST OP HYDRATION Hydration Status: Adequate & Stable
[2019-01-30] MEDS ORDERED: hydrOXYzine HCl 50 MG Tab PO ONE (14:45)
[2019-01-30] MEDS ORDERED: Ibuprofen 600 MG Tab PO PRN (15:00)
[2019-01-30 15:52] VITALS: BP 95/53; PULSE 70
--- NOTE | 2019-01-30 21:04 | PCM48HPAN ---
Post Anesthesia Note - EVALUATION WITHIN 48HRS OF ANESTHETIC Vital Signs in Normal Range: Yes Patient Participated in Evaluation: Yes Respiratory Function Stable: Yes Airway Patent: Yes Cardiovascular Function Stable: Yes Hydration Status Stable: Yes Pain Control Satisfactory: No (Pain level 6-7 the patient continues with oral pain meds) Nausea and Vomiting Control Satisfactory: Yes Mental Status Recovered: Yes Vital Signs: Last Vital Signs Temp 98.1 F 01/30/19 15:25 Pulse 70 01/30/19 15:25 Resp 15 01/30/19 15:25 BP 95/53 L 01/30/19 15:25 Pulse Ox 100 01/30/19 15:25
== END 2019-01-30 15:41 | disposition home or self-care (01) ==
LOC: JD.SDS 08:23
PROVIDERS: ATTEND Obstetrics & Gynecology
DX: N92.0 Excessive and frequent menstruation with regular cycle (principal); N87.9 Dysplasia of cervix uteri, unspecified; I86.2 Pelvic varices; N72 Inflammatory disease of cervix uteri; N73.6 Female pelvic peritoneal adhesions (postinfective); N83.8 Other noninflammatory disorders of ovary, fallopian tube and broad ligament; J45.909 Unspecified asthma, uncomplicated; Z88.5 Allergy status to narcotic agent
CPT/HCPCS: 36415; 58552; 80053; 81001; 81025; 85025; 86850; 86900; 86901; A9270; J0131; J0690; J1100; J1170; J1885; J2001; J2250; J2405; J2704; J3010; J3490; J7050; J7120; 00944

== ENCOUNTER 2022-01-16 20:56 | Emergency (ER) | payer SELFPAY ==
[2022-01-16 22:08] VITALS: BP 110/74; PULSE 103
[2022-01-17] MEDS ORDERED: Acetaminophen/oxyCODONE 325-5 MG Tab PO ONE (01:22)
[2022-01-17] MEDS ORDERED: Cephalexin 500 MG Cap PO STA (01:47)
== END 2022-01-17 02:16 | disposition home or self-care (01) ==
LOC: JD.ED 20:56
DX: M79.89 Other specified soft tissue disorders (principal); Z88.5 Allergy status to narcotic agent; Z86.16 Personal history of COVID-19; Z90.49 Acquired absence of other specified parts of digestive tract
CPT/HCPCS: 99283; A9270

== ENCOUNTER 2024-01-17 21:00 | Emergency (ER) | payer BC ==
[2024-01-17 22:22] VITALS: BP 106/76; PULSE 77
== END 2024-01-17 22:22 | disposition home or self-care (01) ==
LOC: JD.ED 21:00
DX: S99.922A Unspecified injury of left foot, initial encounter (principal); J45.909 Unspecified asthma, uncomplicated; Z88.8 Allergy status to other drugs, medicaments and biological substances; Z79.899 Other long term (current) drug therapy; Z86.16 Personal history of COVID-19; Z90.49 Acquired absence of other specified parts of digestive tract; W20.8XXA Other cause of strike by thrown, projected or falling object, initial encounter
CPT/HCPCS: 73630-26-LT; 73630-LT; 99282; 99283